=== PATIENT | female | born 1965 | race African-American/Black ===

== ENCOUNTER 2021-02-28 18:04 | Emergency (ER) | payer BC ==
[~2021-02-28] VITALS: Ht 175.3 cm; Wt 60.0 kg
[~2021-02-28 18:04] MED LIST: CAPOTEN50 MG; FLEXERIL OR; FLEXERIL10 MG PO; HIV MEDICATIONS; HYDROCHLOROT12.5 MG; LORTAB 5 PO; LORTAB5 OR; METOPROLOL50 MG; PERCOCET 5/325M1 TAB OR; SYNTHROID
[2021-02-28] MEDS ORDERED: HYDROCHLOROT25 MG PO (19:17)
[2021-02-28] MEDS ORDERED: LEVOTHYROXIN75 MCG PO (19:17)
[2021-02-28] MEDS ORDERED: GABAPENTIN300 M2 PO (19:18)
[2021-02-28] MEDS ORDERED: NAPROXEN500 MG PO (21:12)
[2021-02-28] MEDS ORDERED: CYCLOBENZAPRINE10 MG PO (21:12)
[2021-02-28 21:32] VITALS: BP 162/88
== END 2021-02-28 21:40 | disposition home or self-care (01) | DRG 552 ==
LOC: ED 18:04
DX: S23.3XXA Sprain of ligaments of thoracic spine, initial encounter (principal); S33.5XXA Sprain of ligaments of lumbar spine, initial encounter; I10 Essential (primary) hypertension; Y04.0XXA Assault by unarmed brawl or fight, initial encounter; Z21 Asymptomatic human immunodeficiency virus [HIV] infection status